=== PATIENT | female | born 1975 | race Caucasian/White ===

== ENCOUNTER 2017-03-24 08:13 | Day surgery (SDC) | payer OTHER ==
[2017-03-24] MEDS ORDERED: LIDOCAINE 2% (SDV) 5 ML INJ (09:21)
[2017-03-24] MEDS ORDERED: PROPOFOL 20 ML ×2 (09:21)
[2017-03-24] MEDS ORDERED: MIDAZOLAM 1 MG/ML 2 ML INJ (10:15)
== END 2017-03-24 11:04 | disposition home or self-care (01) ==
LOC: GIL 08:13
DX: R19.4 Change in bowel habit (principal); I10 Essential (primary) hypertension; F41.9 Anxiety disorder, unspecified
CPT/HCPCS: 45378; 84703